=== PATIENT | female | born 1965 | race Caucasian/White ===

== ENCOUNTER 2019-12-09 09:27 | Outpatient (CLI) | payer BC ==
--- NOTE | 2019-12-09 13:52 | BD ---
BONE DENSITOMETRY: INDICATION: Postmenopausal screening. FINDINGS: Lumbar Spine: BMD (g/cm2) L1 1.244 T-Score: 2.3 L2 1.228 T-Score: 1.8 L3 1.199 T-Score: 1.0 L4 1.024 T-Score: -0.3 L1-L4 1.165 T-Score: 1.1 Femoral Neck: 0.862 T-Score: 0.1 Total Femur: 0.928 T-Score: -0.1 Impression: Bone mineral density of the lumbar spine and femoral neck are both within normal range. POS: AGW
--- NOTE | 2019-12-15 13:00 | MMO ---
Bilateral MAMMO Bilat Screen [facility]. CLINICAL HISTORY: Patient is 54 years old and is seen for screening. The patient has no family history of breast cancer. The patient has a history of lung cancer in 2019 and thyroid cancer in 2009. VIEWS: The views performed were: bilateral craniocaudal with tomosynthesis and bilateral mediolateral oblique with tomosynthesis. FILMS COMPARED: The present examination has been compared to prior imaging studies performed at [facility] on 12/05/2013 and 01/12/2017. This study has been interpreted with the assistance of computer-aided detection. MAMMOGRAM FINDINGS: There are scattered fibroglandular densities. There are no suspicious masses, suspicious calcifications, or new areas of architectural distortion. IMPRESSION: THERE IS NO MAMMOGRAPHIC EVIDENCE OF MALIGNANCY. A ROUTINE FOLLOW-UP MAMMOGRAM IN 1 YEAR IS RECOMMENDED. THE RESULTS OF THIS EXAM WERE SENT TO THE PATIENT. ACR BI-RADS Category 1 - Negative MAMMOGRAPHY NOTE: 1. A negative mammogram report should not delay a biopsy if a dominant of clinically suspicious mass is present. 2. Approximately 10% to 15% of breast cancers are not detected by mammography. 3. Adenosis and dense breasts may obscure an underlying neoplasm. Reported by: ROSI ADLER MD Electonically Signed: [id number]
== END 2019-12-09 09:28 | disposition home or self-care (01) ==
LOC: BICMAMMO 09:27
PROVIDERS: ATTEND Specialist
DX: Z12.31 Encounter for screening mammogram for malignant neoplasm of breast (principal); Z13.820 Encounter for screening for osteoporosis; Z85.850 Personal history of malignant neoplasm of thyroid; Z85.118 Personal history of other malignant neoplasm of bronchus and lung
CPT/HCPCS: 77063; 77067; 77080

== ENCOUNTER 2022-08-11 11:04 | Outpatient (CLI) | payer BC | END 2022-08-11 11:05 | disposition home or self-care (01) | LOC: BICMAMMO 11:04 | PROVIDERS: ATTEND Specialist | DX: Z12.31 Encounter for screening mammogram for malignant neoplasm of breast (principal); E65 Localized adiposity; Z85.850 Personal history of malignant neoplasm of thyroid; Z85.118 Personal history of other malignant neoplasm of bronchus and lung | CPT/HCPCS: 77063; 77067 ==

== ENCOUNTER 2022-08-17 14:51 | Outpatient (CLI) | payer BC | END 2022-08-17 14:52 | disposition home or self-care (01) | LOC: BICMAMMO 14:51 | PROVIDERS: ATTEND Specialist | DX: Z13.820 Encounter for screening for osteoporosis (principal); M85.9 Disorder of bone density and structure, unspecified | CPT/HCPCS: 77080 ==

== ENCOUNTER 2023-12-06 11:18 | Outpatient (CLI) | payer BC | END 2023-12-06 11:19 | disposition home or self-care (01) | LOC: BICMAMMO 11:18 | PROVIDERS: ATTEND Specialist | DX: Z12.31 Encounter for screening mammogram for malignant neoplasm of breast (principal); Z85.118 Personal history of other malignant neoplasm of bronchus and lung; Z85.850 Personal history of malignant neoplasm of thyroid | CPT/HCPCS: 77063; 77067 ==

== ENCOUNTER 2023-12-25 09:43 | Outpatient (CLI) | payer BC | END 2023-12-25 09:44 | disposition home or self-care (01) | LOC: ULT 09:43 | PROVIDERS: ATTEND Internal Medicine Gastroenterology | DX: E11.43 Type 2 diabetes mellitus with diabetic autonomic (poly)neuropathy (principal); K31.84 Gastroparesis; R10.13 Epigastric pain; R07.9 Chest pain, unspecified; K64.4 Residual hemorrhoidal skin tags | CPT/HCPCS: 76705 ==

== ENCOUNTER 2024-01-10 10:37 | Outpatient (CLI) | payer BC ==
[2024-01-10] MEDS ORDERED: Magnevist 469MG/ML 20 ML VIAL ONE (11:20)
== END 2024-01-10 10:38 | disposition home or self-care (01) ==
LOC: MRI 10:37
PROVIDERS: ATTEND Internal Medicine Gastroenterology
DX: R10.13 Epigastric pain (principal); K76.0 Fatty (change of) liver, not elsewhere classified; K83.8 Other specified diseases of biliary tract; K86.2 Cyst of pancreas; Z90.49 Acquired absence of other specified parts of digestive tract
CPT/HCPCS: 74183; 76377; A9579